=== PATIENT | male | born 2000 | race Caucasian/White ===

== ENCOUNTER 2021-07-09 10:56 | Emergency (ER) | payer OTHER ==
[~2021-07-09] VITALS: Ht 177.8 cm; Wt 86.5 kg
[2021-07-09 10:57] VITALS: BP 135/74
--- NOTE | 2021-07-09 16:25 | REP ---
INDICATION: trauma, lateral pain COMPARISON: None. TECHNIQUE: AP, lateral, bilateral oblique views. FINDINGS: Lateral swelling. No acute fracture or dislocation. Joint spaces and ankle mortise are intact. IMPRESSION: Lateral swelling. No acute fracture or dislocation. <Electronically signed by Mario Alberto Bills > 07/09/21 [id number]
== END 2021-07-09 16:53 | disposition home or self-care (01) ==
LOC: M ED 10:56
DX: S93.402A Sprain of unspecified ligament of left ankle, initial encounter (principal); Y92.9 Unspecified place or not applicable; Y93.9 Activity, unspecified; Y99.9 Unspecified external cause status